=== PATIENT | female | born 1940 | race Caucasian/White ===

== ENCOUNTER 2020-03-23 09:59 | Inpatient (IN) | payer MEDICARE ==
[2020-03-21 11:55] LABS: BASOPHILS # (AUTO) 0.03 x10^3/uL (0-0.1); BASOPHILS % (AUTO) 0 % (0-1); EOSINOPHILS # (AUTO) 0.26 x10^3/uL (0-0.4); EOSINOPHILS % (AUTO) 3 % (1-7); LYMPHOCYTES % (AUTO) 15 % (22-44); MD NO; MEAN CORPUSCULAR HEMOGLOBIN 27.6 pg (27.0-34.8); MEAN CORPUSCULAR HGB CONC 31.5 g/dL (32.4-35.8); MEAN PLATELET VOLUME 8.7 fL (7.4-10.4); MONOCYTES # (AUTO) 0.53 x10^3/uL (0.2-0.8); MONOCYTES % (AUTO) 6 % (2-9); NEUTROPHILS # (AUTO) 6.56 x10^3/uL (1.8-6.8); NEUTROPHILS % (AUTO) 76 % (42-75); PLATELET COUNT 349 x10^3/uL (130-400); RED BLOOD COUNT 5.18 x10^6/uL (3.82-5.3); RED CELL DISTRIBUTION WIDTH 14.6 % (9.6-15.2)
[2020-03-21 12:03] LABS: ALANINE AMINOTRANSFERASE 20 U/L (12-78); ALBUMIN 3.5 g/dL (3.4-5.0); ANION GAP 3 mmol/L (5-15); CALCIUM 9.5 mg/dL (8.5-10.1); CHLORIDE 112 mmol/L (98-107); CREATININE 1.38 mg/dL (0.55-1.02)
[2020-03-21 12:06] LABS: ALKALINE PHOSPHATASE 116 U/L (45-117); BILIRUBIN,TOTAL 0.6 mg/dL (0.2-1.0); TOTAL PROTEIN 7.3 g/dL (6.4-8.2)
[~2020-03-23] VITALS: Ht 157.5 cm; Wt 92.9 kg
[~2020-03-23 09:59] MED LIST: ASPI-496 PO; ATOR40TA78 PO; CARV-39 PO; CHOL200024 PO; CHOL200074 PO; HYDR-3246 PO; INSU100I11 SC; INSU100I7 SQ-INSULIN; LISI-167 PO; vitamin c PO
[2020-03-23] MEDS ORDERED: LACTATED RINGERS 1,000 ML IV SCH (10:32)
[2020-03-23] MEDS ORDERED: VANCOMYCIN PER PHARMACY MC PRN (11:00)
[2020-03-23] MEDS ORDERED: EPINEPHRINE 1 MG/ML, 1ML ONE (11:00)
[2020-03-23] MEDS ORDERED: VANCOMYCIN 1,000 MG ONE (11:00)
[2020-03-23] MEDS ORDERED: ROPIvacaine/PF 0.2%, 20 ML ONE (11:00)
[2020-03-23] MEDS ORDERED: TRANEXAMIC ACID 100 MG/ML, 10ML ONE ×2 (11:00)
[2020-03-23] MEDS ORDERED: KETOROLAC 60 MG/2 ML ONE (11:00)
[2020-03-23] MEDS ORDERED: VANCOMYCIN 1,600 MG in SODIUM CHLORIDE 0.9% 250 ML IV ONE (11:00)
[2020-03-23] MEDS ORDERED: CHLORHEXIDINE 15 ML UDC MM ONE (11:00)
[2020-03-23] MEDS ORDERED: ACETAMINOPHEN 500 MG TABLET ONE (11:07)
[2020-03-23] MEDS ORDERED: ACETAMINOPHEN 500 MG TABLET PO STA (11:11)
[2020-03-23] MEDS ORDERED: FENTANYL PF 250 MCG/5ML ONE (11:12)
[2020-03-23] MEDS ORDERED: HYDROmorphone 1 MG/ML, 1ML INJ IVPush PRN ×2 (12:30→14:00)
[2020-03-23] MEDS ORDERED: METHOCARBAMOL 1,000 MG in DEXTROSE 5% 100 ML IV PRN (12:30)
[2020-03-23] MEDS ORDERED: PROMETHAZINE 25 MG SUPP PR PRN (12:30)
[2020-03-23] MEDS ORDERED: PROMETHAZINE 25 MG/ML, 1ML IVPush PRN (12:30)
[2020-03-23] MEDS ORDERED: OXYcodone 5 MG/5 ML ORAL.SOL UDC PO PRN (12:30)
[2020-03-23] MEDS ORDERED: hydrALAzine 20 MG/ML, 1ML IV PRN (12:30)
[2020-03-23] MEDS ORDERED: ONDANSETRON 2MG/ML, 2ML IVPush PRN (12:30)
[2020-03-23] MEDS ORDERED: PROPOFOL 100 ML ONE (12:36)
[2020-03-23] MEDS ORDERED: METOCLOPRAMIDE 5 MG/ML, 2ML ONE (12:51)
[2020-03-23] MEDS ORDERED: PROPOFOL 10 MG/ML, 20ML ONE (12:52)
[2020-03-23] MEDS ORDERED: ONDANSETRON 2MG/ML, 2ML ONE (12:52)
[2020-03-23] MEDS ORDERED: DEXAMETHASONE 4 MG/ML, 1ML ONE (12:52)
[2020-03-23] MEDS ORDERED: CEFAZOLIN 1,000 MG ONE (12:52)
[2020-03-23] MEDS ORDERED: TRANEXAMIC ACID 1,000 MG in SODIUM CHLORIDE 0.9% 100 ML IVPB ONE (14:00)
[2020-03-23] MEDS ORDERED: ACETAMINOPHEN 325 MG TABLET PO SCH (14:00)
[2020-03-23] MEDS ORDERED: SENNA/DOCUSATE TABLET PO PRN (14:00)
[2020-03-23] MEDS ORDERED: DIPHENHYDRAMINE 50 MG CAPSULE PO PRN (14:00)
[2020-03-23] MEDS ORDERED: HYDROcodone/APAP 5/325 TABLET PO PRN ×2 (14:00)
[2020-03-23] MEDS: LACTATED RINGERS 1,000 ML IV SCH ×2 (14:00→23:33)
[2020-03-23] MEDS ORDERED: HYDROcodone/APAP 10/325 MG TABLET PO PRN (14:00)
[2020-03-23] MEDS: LABETALOL 5MG/ML, 20ML IV PRN ×3 (14:07→14:31)
[2020-03-23] MEDS ORDERED: LABETALOL 5MG/ML, 20ML ONE (14:07)
[2020-03-23] MEDS ORDERED: FENTANYL PF 100 MCG/2ML ONE (14:07)
[2020-03-23] MEDS: FENTANYL PF 100 MCG/2ML IV PRN ×3 (14:10→14:35)
[2020-03-23] MEDS ORDERED: hydrALAzine 20 MG/ML, 1ML ONE (14:43)
[2020-03-23] MEDS ORDERED: HYDROmorphone 1 MG/ML, 1ML INJ ONE (14:43)
[2020-03-23 15:39] VITALS: BP 163/86
[2020-03-23] MEDS: INSULIN REGULAR 100 UNITS/ML, 3ML VIAL SQ-INSULIN SCH ×2 (16:00→21:52)
[2020-03-23] MEDS ORDERED: LABETALOL 5MG/ML, 20ML IVPush PRN (18:30)
[2020-03-23 20:52] VITALS: BP 134/83
[2020-03-23] MEDS ORDERED: INSULIN LISPRO 100 UNITS/ML, PEN SQ-INSULIN SCH (21:00)
[2020-03-23] MEDS ORDERED: CARVEDILOL 25 MG TABLET PO SCH (21:00)
[2020-03-23] MEDS: ATORVASTATIN 40 MG TABLET PO SCH (21:27)
[2020-03-23] MEDS: CEFAZOLIN PMX 2GM/50ML 50 ML IVPB SCH (21:28)
[2020-03-23] MEDS: PREGABALIN 75 MG CAPSULE PO SCH (21:28)
[2020-03-23 21:40] VITALS: BP 154/83
[2020-03-23] MEDS: METOPROLOL TARTRATE 25 MG TAB PO SCH (21:50)
[2020-03-23 22:13] LABS: MEAN CORPUSCULAR HGB CONC 32.4 g/dL (32.4-35.8); PLATELET COUNT 342 x10^3/uL (130-400); RED BLOOD COUNT 5.36 x10^6/uL (3.82-5.3); RED CELL DISTRIBUTION WIDTH 14.5 % (9.6-15.2)
[2020-03-23 22:28] LABS: TROPONIN I < 0.015 ng/mL (0.000-0.045)
[2020-03-23 22:31] LABS: BASOPHILS % (AUTO) 0 % (0-1); EOSINOPHILS % (AUTO) 0 % (1-7); LYMPHOCYTES # (AUTO) 0.62 x10^3/uL (1-3.4); LYMPHOCYTES % (AUTO) 4 % (22-44); MD SCAN; MONOCYTES # (AUTO) 0.04 x10^3/uL (0.2-0.8); MONOCYTES % (AUTO) 0 % (2-9); NEUTROPHILS # (AUTO) 16.63 x10^3/uL (1.8-6.8); NEUTROPHILS % (AUTO) 96 % (42-75)
[2020-03-23 23:04] LABS: ALANINE AMINOTRANSFERASE 22 U/L (12-78); ALBUMIN 3.1 g/dL (3.4-5.0); ANION GAP 11 mmol/L (5-15); CALCIUM 8.5 mg/dL (8.5-10.1); CHLORIDE 110 mmol/L (98-107)
[2020-03-23] MEDS: ONDANSETRON 2MG/ML, 2ML IVPush PRN (23:09)
[2020-03-23 23:12] LABS: ALKALINE PHOSPHATASE 123 U/L (45-117); BILIRUBIN,TOTAL 0.6 mg/dL (0.2-1.0); CREATININE 1.21 mg/dL (0.55-1.02); TOTAL PROTEIN 7.4 g/dL (6.4-8.2)
[2020-03-23 23:18] VITALS: BP 123/74
[2020-03-24 01:21] VITALS: BP 131/80
[2020-03-24] MEDS: ONDANSETRON 2MG/ML, 2ML IVPush PRN ×3 (05:07→14:10)
[2020-03-24] MEDS: CEFAZOLIN PMX 2GM/50ML 50 ML IVPB SCH (05:08)
[2020-03-24 05:12] VITALS: BP 177/94
[2020-03-24] MEDS: METOPROLOL TARTRATE 25 MG TAB PO SCH (05:15)
[2020-03-24] MEDS ORDERED: DEXAMETHASONE 4 MG/ML, 1ML IVPush SCH (06:00)
[2020-03-24] MEDS ORDERED: INSULIN LISPRO 100 UNITS/ML, PEN SQ-INSULIN SCH (08:00)
[2020-03-24 08:07] VITALS: BP 189/95
[2020-03-24] MEDS: ASPIRIN 81 MG TABLET EC PO SCH ×2 (08:23→17:14)
[2020-03-24] MEDS: INSULIN REGULAR 100 UNITS/ML, 3ML VIAL SQ-INSULIN SCH ×4 (08:23→20:42)
[2020-03-24] MEDS: CHOLECALCIFEROL 1,000 UNIT TABLET PO SCH (08:24)
[2020-03-24] MEDS: LISINOPRIL 10 MG TABLET PO SCH (08:24)
[2020-03-24] MEDS: PREGABALIN 75 MG CAPSULE PO SCH ×2 (08:25→20:35)
[2020-03-24 08:54] LABS: MEAN CORPUSCULAR HEMOGLOBIN 27.8 pg (27.0-34.8); MEAN CORPUSCULAR HGB CONC 31.6 g/dL (32.4-35.8); MEAN PLATELET VOLUME 9.3 fL (7.4-10.4); PLATELET COUNT 375 x10^3/uL (130-400); RED BLOOD COUNT 4.96 x10^6/uL (3.82-5.3); RED CELL DISTRIBUTION WIDTH 14.4 % (9.6-15.2)
[2020-03-24 09:22] LABS: ANION GAP 7 mmol/L (5-15); CHLORIDE 110 mmol/L (98-107)
[2020-03-24 09:35] LABS: BASOPHILS # (AUTO) 0.02 x10^3/uL (0-0.1); BASOPHILS % (AUTO) 0 % (0-1); EOSINOPHILS % (AUTO) 0 % (1-7); LYMPHOCYTES # (AUTO) 0.75 x10^3/uL (1-3.4); LYMPHOCYTES % (AUTO) 4 % (22-44); MD SCAN; MONOCYTES # (AUTO) 0.71 x10^3/uL (0.2-0.8); MONOCYTES % (AUTO) 4 % (2-9); NEUTROPHILS # (AUTO) 17.05 x10^3/uL (1.8-6.8); NEUTROPHILS % (AUTO) 92 % (42-75)
[2020-03-24] MEDS: LACTATED RINGERS 1,000 ML IV SCH (10:37)
[2020-03-24 12:35] VITALS: BP 182/98
[2020-03-24] MEDS ORDERED: MAGNESIUM SULFATE PMX 2GM/50ML 50 ML IV ONE (14:30)
[2020-03-24 15:04] VITALS: BP 169/83
[2020-03-24] MEDS ORDERED: PROMETHAZINE 25 MG/ML, 1ML IM PRN (16:30)
[2020-03-24] MEDS: CARVEDILOL 25 MG TABLET PO SCH (16:52)
[2020-03-24 18:48] VITALS: BP 106/74
[2020-03-24] MEDS: ATORVASTATIN 40 MG TABLET PO SCH (20:34)
[2020-03-25 01:26] VITALS: BP 113/69
[2020-03-25] MEDS: LACTATED RINGERS 1,000 ML IV SCH ×3 (01:31→23:21)
[2020-03-25 06:21] VITALS: BP 118/77
[2020-03-25] MEDS: CARVEDILOL 25 MG TABLET PO SCH ×2 (06:22→18:20)
[2020-03-25 07:18] LABS: MEAN CORPUSCULAR HEMOGLOBIN 27.8 pg (27.0-34.8); MEAN CORPUSCULAR HGB CONC 31.6 g/dL (32.4-35.8); MEAN PLATELET VOLUME 9.1 fL (7.4-10.4); PLATELET COUNT 393 x10^3/uL (130-400); RED BLOOD COUNT 4.59 x10^6/uL (3.82-5.3)
[2020-03-25 07:40] LABS: BASOPHILS # (AUTO) 0.05 x10^3/uL (0-0.1); BASOPHILS % (AUTO) 0 % (0-1); EOSINOPHILS # (AUTO) 0.01 x10^3/uL (0-0.4); EOSINOPHILS % (AUTO) 0 % (1-7); LYMPHOCYTES # (AUTO) 1.32 x10^3/uL (1-3.4); LYMPHOCYTES % (AUTO) 8 % (22-44); MD SCAN; MONOCYTES # (AUTO) 1.31 x10^3/uL (0.2-0.8); MONOCYTES % (AUTO) 8 % (2-9); NEUTROPHILS # (AUTO) 13.33 x10^3/uL (1.8-6.8); NEUTROPHILS % (AUTO) 83 % (42-75)
[2020-03-25 07:45] LABS: ANION GAP 9 mmol/L (5-15); CALCIUM 8.7 mg/dL (8.5-10.1); CHLORIDE 107 mmol/L (98-107)
[2020-03-25 07:47] LABS: CREATININE 1.81 mg/dL (0.55-1.02)
[2020-03-25] MEDS: ASPIRIN 81 MG TABLET EC PO SCH (08:15)
[2020-03-25] MEDS: INSULIN REGULAR 100 UNITS/ML, 3ML VIAL SQ-INSULIN SCH ×4 (08:16→20:40)
[2020-03-25] MEDS: LISINOPRIL 10 MG TABLET PO SCH (08:16)
[2020-03-25] MEDS: PREGABALIN 75 MG CAPSULE PO SCH ×2 (08:16→20:49)
[2020-03-25] MEDS: CHOLECALCIFEROL 1,000 UNIT TABLET PO SCH (08:16)
[2020-03-25] MEDS: ONDANSETRON 2MG/ML, 2ML IVPush PRN (08:22)
[2020-03-25 13:49] VITALS: BP 122/75
[2020-03-25 19:14] VITALS: BP 165/79
[2020-03-25] MEDS: ATORVASTATIN 40 MG TABLET PO SCH (20:49)
[2020-03-25] MEDS: APIXABAN 2.5 MG TABLET PO SCH (20:49)
[2020-03-26 00:58] VITALS: BP 127/74
[2020-03-26] MEDS: CARVEDILOL 25 MG TABLET PO SCH ×2 (05:50→18:28)
[2020-03-26 06:24] LABS: MICROSCOPIC NOT IND
[2020-03-26 06:33] LABS: BASOPHILS # (AUTO) 0.04 x10^3/uL (0-0.1); BASOPHILS % (AUTO) 0 % (0-1); EOSINOPHILS % (AUTO) 2 % (1-7); LYMPHOCYTES # (AUTO) 2.47 x10^3/uL (1-3.4); LYMPHOCYTES % (AUTO) 22 % (22-44); MD NO; MEAN CORPUSCULAR HEMOGLOBIN 28.1 pg (27.0-34.8); MEAN CORPUSCULAR HGB CONC 32.5 g/dL (32.4-35.8); MONOCYTES # (AUTO) 1.19 x10^3/uL (0.2-0.8); MONOCYTES % (AUTO) 11 % (2-9); NEUTROPHILS # (AUTO) 7.42 x10^3/uL (1.8-6.8); NEUTROPHILS % (AUTO) 66 % (42-75); PLATELET COUNT 334 x10^3/uL (130-400); RED BLOOD COUNT 4.26 x10^6/uL (3.82-5.3); RED CELL DISTRIBUTION WIDTH 14.7 % (9.6-15.2)
[2020-03-26 06:39] LABS: ANION GAP 6 mmol/L (5-15); CALCIUM 8.2 mg/dL (8.5-10.1); CHLORIDE 109 mmol/L (98-107)
[2020-03-26 06:41] LABS: CREATININE 1.47 mg/dL (0.55-1.02)
[2020-03-26] MEDS: INSULIN REGULAR 100 UNITS/ML, 3ML VIAL SQ-INSULIN SCH ×4 (07:00→20:47)
[2020-03-26 07:05] VITALS: BP 127/75
[2020-03-26] MEDS: PREGABALIN 75 MG CAPSULE PO SCH ×2 (09:23→20:46)
[2020-03-26] MEDS: APIXABAN 2.5 MG TABLET PO SCH ×2 (09:24→20:46)
[2020-03-26] MEDS: CHOLECALCIFEROL 1,000 UNIT TABLET PO SCH (09:24)
[2020-03-26] MEDS: LISINOPRIL 10 MG TABLET PO SCH (09:24)
[2020-03-26] MEDS ORDERED: APIX2.5T PO (12:21)
[2020-03-26] MEDS ORDERED: PREG75CA PO (12:21)
[2020-03-26] MEDS ORDERED: APIX5TAB PO (12:26)
[2020-03-26 13:50] VITALS: BP 146/75
[2020-03-26 20:38] VITALS: BP 153/81
[2020-03-26] MEDS: ATORVASTATIN 40 MG TABLET PO SCH (20:46)
[2020-03-27 00:42] VITALS: BP 155/80
[2020-03-27 05:36] VITALS: BP 153/80
[2020-03-27] MEDS: CARVEDILOL 25 MG TABLET PO SCH ×2 (05:38→17:15)
[2020-03-27] MEDS: INSULIN REGULAR 100 UNITS/ML, 3ML VIAL SQ-INSULIN SCH ×4 (07:00→21:00)
[2020-03-27 07:35] VITALS: BP 148/80
[2020-03-27] MEDS: LISINOPRIL 10 MG TABLET PO SCH (09:39)
[2020-03-27] MEDS: CHOLECALCIFEROL 1,000 UNIT TABLET PO SCH (09:40)
[2020-03-27] MEDS: PREGABALIN 75 MG CAPSULE PO SCH ×2 (09:40→21:04)
[2020-03-27] MEDS: APIXABAN 2.5 MG TABLET PO SCH ×2 (09:40→21:04)
[2020-03-27 12:09] VITALS: BP 160/74
[2020-03-27 19:51] VITALS: BP 149/72
[2020-03-27] MEDS: ATORVASTATIN 40 MG TABLET PO SCH (21:04)
[2020-03-28 03:55] VITALS: BP 133/73
[2020-03-28 06:04] VITALS: BP 158/78
[2020-03-28] MEDS: CARVEDILOL 25 MG TABLET PO SCH ×2 (06:05→16:53)
[2020-03-28 06:18] VITALS: BP 152/83
[2020-03-28] MEDS: INSULIN REGULAR 100 UNITS/ML, 3ML VIAL SQ-INSULIN SCH ×3 (07:00→16:00)
[2020-03-28] MEDS: CHOLECALCIFEROL 1,000 UNIT TABLET PO SCH (07:48)
[2020-03-28] MEDS: LISINOPRIL 10 MG TABLET PO SCH (07:48)
[2020-03-28] MEDS: APIXABAN 2.5 MG TABLET PO SCH (07:48)
[2020-03-28] MEDS: PREGABALIN 75 MG CAPSULE PO SCH (07:48)
[2020-03-28 09:35] LABS: BASOPHILS # (AUTO) 0.04 x10^3/uL (0-0.1); BASOPHILS % (AUTO) 0 % (0-1); EOSINOPHILS % (AUTO) 4 % (1-7); LYMPHOCYTES # (AUTO) 1.39 x10^3/uL (1-3.4); LYMPHOCYTES % (AUTO) 12 % (22-44); MD NO; MEAN CORPUSCULAR HGB CONC 32.1 g/dL (32.4-35.8); MEAN PLATELET VOLUME 8.7 fL (7.4-10.4); MONOCYTES # (AUTO) 0.91 x10^3/uL (0.2-0.8); MONOCYTES % (AUTO) 8 % (2-9); NEUTROPHILS # (AUTO) 8.44 x10^3/uL (1.8-6.8); NEUTROPHILS % (AUTO) 76 % (42-75); PLATELET COUNT 292 x10^3/uL (130-400); RED BLOOD COUNT 4.09 x10^6/uL (3.82-5.3); RED CELL DISTRIBUTION WIDTH 14.8 % (9.6-15.2)
[2020-03-28 09:46] LABS: ALBUMIN 2.3 g/dL (3.4-5.0); ANION GAP 7 mmol/L (5-15); CALCIUM 8.6 mg/dL (8.5-10.1); CHLORIDE 109 mmol/L (98-107)
[2020-03-28 09:50] LABS: % IRON SATURATION 9 % (20-55); ALANINE AMINOTRANSFERASE 11 U/L (12-78); ALKALINE PHOSPHATASE 77 U/L (45-117); BILIRUBIN,TOTAL 0.9 mg/dL (0.2-1.0); CREATININE 1.09 mg/dL (0.55-1.02); IRON LEVEL 16 mcg/dL (50-170); TOTAL IRON BINDING CAPACITY 183 mcg/dL (250-450); TOTAL PROTEIN 5.9 g/dL (6.4-8.2)
[2020-03-28 13:10] VITALS: BP 128/62
== END 2020-03-28 19:46 | DRG 470 ==
LOC: OUT 09:59 → OBSVTOIN 14:00 → ORIP 14:00 → 4NE 15:34 → 4EST 22:49
PROVIDERS: ADMIT Orthopaedic Surgery; ATTEND Internal Medicine
PROC: 0SRC0J9 Replacement of Right Knee Joint with Synthetic Substitute, Cemented, Open Approach (ICD-10-PCS; principal; 2020-03-23 12:00)
DX: M17.11 Unilateral primary osteoarthritis, right knee (principal); D68.69 Other thrombophilia; I48.92 Unspecified atrial flutter; I43 Cardiomyopathy in diseases classified elsewhere; I50.32 Chronic diastolic (congestive) heart failure; M25.561 Pain in right knee; D72.829 Elevated white blood cell count, unspecified; E11.9 Type 2 diabetes mellitus without complications; E66.9 Obesity, unspecified; E78.5 Hyperlipidemia, unspecified; E83.42 Hypomagnesemia; I11.0 Hypertensive heart disease with heart failure; I48.91 Unspecified atrial fibrillation; Z79.01 Long term (current) use of anticoagulants; Z79.4 Long term (current) use of insulin; Z79.899 Other long term (current) drug therapy; Z80.0 Family history of malignant neoplasm of digestive organs; Z82.3 Family history of stroke; Z82.49 Family history of ischemic heart disease and other diseases of the circulatory system; Z83.3 Family history of diabetes mellitus; Z68.37 Body mass index [BMI] 37.0-37.9, adult; Z03.818 Encounter for observation for suspected exposure to other biological agents ruled out; D50.9 Iron deficiency anemia, unspecified
CPT/HCPCS: 36415; 80048; 80053; 81003; 82962; 83540; 83550; 83735; 84443; 84484; 85018; 85025; 87081; 87147; 87635; 93005; 93306; C1713; G0378; J0171; J0690; J1100; J1170; J1815; J1885; J2405; J2550; J2704; J2795; J3010; J3370; C1776; J0360; J2765; J2800; J3475; J7050; J7120

== ENCOUNTER → 2020-07-15 | Outpatient (CLI) | payer MEDICARE ==
[~2020-07-15] MED LIST changes: +APIX2.5T PO; +APIX5TAB PO; +PREG75CA PO; +REGADENOSON 0.4 MG/5 ML SYRINGE ONE
== END | disposition home or self-care (01) ==
LOC: CFH 07:47
PROVIDERS: ATTEND Internal Medicine Clinical Cardiac Electrophysiology
DX: I10 Essential (primary) hypertension (principal); I48.0 Paroxysmal atrial fibrillation
CPT/HCPCS: 78452; 93017; A9502; J2785